=== PATIENT | female | born 1975 | race Caucasian/White ===

== ENCOUNTER 2016-06-14 08:51 | Emergency (ER) | payer SELFPAY ==
--- NOTE | 2016-06-14 08:58 | UC ---
HPI Wound/Suture Re-check - HPI Summary HPI Summary: welling healing wound left thumb - History Of Current Complaint Stated Complaint: SUTURE REMOVAL Time Seen by Provider: 06/14/16 08:57 Hx Obtained From: Patient Onset/Duration: Sudden Onset, Lasting Days - 10, Resolved Severity: Mild Pain Intensity: 0 Pain Scale Used: 0-10 Numeric - Allergies/Home Medications Allergies/Adverse Reactions: Allergies Allergy/AdvReac Type Severity Reaction Status Date / Time No Known Allergies Allergy Verified 06/03/16 11:30 Home Medications: Home Medications Ascorbic Acid TAB* [Vitamin C TAB*] 06/14/16 [History] Zinc 50 06/14/16 [History] PMH/Surg Hx/FS Hx/Imm Hx Previously Healthy: No Endocrine History Of: Reports: Diabetes - gestational, not currently - Surgical History Surgical History: Yes Surgery Procedure, Year, and Place: tonsils as child - Family History Known Family History: Positive: None Negative: Diabetes, Blood Disorder Family History: no cardiovascular issues in family lineage - Social History Occupation: Employed Full-time Lives: With Family Alcohol Use: Rare Substance Use Type: None Smoking Status (MU): Light Every Day Tobacco Smoker Amount Used/How Often: weaning off smoking Review of Systems Constitutional: Negative Skin: Other - healing wound left thumb Eyes: Negative ENT: Negative Respiratory: Negative Cardiovascular: Negative Gastrointestinal: Negative Genitourinary: Negative Motor: Negative Neurovascular: Negative Musculoskeletal: Negative Neurological: Negative Psychological: Negative All Other Systems Reviewed And Are Negative: Yes Physical Exam Triage Information Reviewed: Yes Appearance: Well-Appearing, No Pain Distress, Well-Nourished Vital Signs Reviewed: Yes Eye Exam: Normal Eyes: Positive: Conjunctiva Clear ENT Exam: Normal ENT: Positive: Normal ENT inspection, Hearing grossly normal, Pharynx normal, TMs normal. Negative: Nasal congestion, Nasal drainage, Tonsillar swelling, Tonsillar exudate, Trismus, Muffled/hoarse voice Dental Exam: Normal Neck exam: Normal Respiratory Exam: Normal Respiratory: Positive: Chest non-tender, Lungs clear, Normal breath sounds, No respiratory distress, No accessory muscle use Cardiovascular Exam: Normal Cardiovascular: Positive: RRR, No Murmur, Pulses Normal, Brisk Capillary Refill Musculoskeletal Exam: Normal Musculoskeletal: Positive: Strength Intact, ROM Intact, No Edema Neurological Exam: Normal Neurological: Positive: Alert, Muscle Tone Normal Psychological Exam: Normal Psychological: Positive: Normal Response To Family, Age Appropriate Behavior Skin Exam: Other Skin: Positive: Other - healing wound left thumb Re-Evaluation - Re-Evaluation First Eval Change: Improved - tolerated suture removal , wound well approximated, steri strips applied Course/Dx - Course Course Of Treatment: steri care, wash bid and prn re-check if needed - Differential Dx - Laceration/Wound Differential Diagnoses: Dehiscence, Healing Wound, Joint Infection, Suture Removal Provider Diagnoses: Healing wound left thumb suture removal Discharge - Discharge Plan Condition: Stable Disposition: HOME Patient Education Materials: Stitches Removal (ED), Steristrips (ED) Referrals: [facility] [Outside] - If Needed Gavi Joseph, MEDICAL TRANSLATOR [Nurse Practitioner] - If Needed
[2016-06-14] MEDS ORDERED: Benzoin Compound STICK ONE (09:04)
[2016-06-14 09:17] VITALS: BP 123/74
== END 2016-06-14 09:11 | disposition home or self-care (01) ==
LOC: UCEAST 08:51
DX: Z48.02 Encounter for removal of sutures (principal); Z48.817 Encounter for surgical aftercare following surgery on the skin and subcutaneous tissue

== ENCOUNTER 2018-03-05 14:03 | Emergency (ER) | payer BC, OTHER ==
--- OUTSIDE RECORDS SUMMARY | 2018-03-05 14:36 | XMS REPORT ---
:1975 External Reference #:[id number] Author Organization [facility] Address [address] [place] [address] Phone [phone] Care Team Providers Name Role Phone Annabel Carrizales M.D. Care Team Information Psychology Physician Unavailable Annabel Carrizales M.D. Primary Care Physician Unavailable Payers Type Date Identification Numbers Payment Provider Subscriber Health Maintenance Policy Number: Essential Plan Carolyne Gorman Organization (HMO) [id number] [employer] PayID: [id number] [address] [address] [place] [address] Problems Description No Information Family History Date Family Member(s) Problem(s) Comments Father 65 Father Thyroid Disease Mother 60 Mother Thyroid Disease First Brother 39 First Sister 22 Maternal Grandfather Diabetes Mellitus, II Social History Type Date Description Comments Marital Status Single Lives With Daughter Diet Patient is on a gluten-free diet Diet Patient is a vegetarian occas fish Occupation Construction Cigarette Use Nonsmoker ETOH Use Occasional 2-3 x week Smoking Patient is a former smoker Exercise Type/Frequency active lifestyle Allergies, Adverse Reactions, Alerts Date Description Reaction Status Severity Comments 08/02/2017 NKDA active Medications Medication Date Status Form Strength Qnty SIG Indications Ordering Provider Cyclobenzaprine 03/02 Active Tablets 5mg 90tab 1-2 by M26.601 Mounika C. HCL /2017 s mouth 3 Shon, times per ECONOMIC SPECIALIST day as needed for muscle spasm Vitamin C Active Capsules 500mg 1 by Unknown /0000 mouth twice a day Multivitamin Active Tablets 1 by Unknown Adult /0000 mouth every day Vitamin B Active Tablets 1 by Unknown Complex /0000 mouth every day Zithromax 02/05 Hx Capsules 250mg 6caps 2 tabs po 466.0 Sheila /2006 x1, then [place], - 1 tab po FOAM RUBBER CURER 08/02 qd x more days Tussi-12 02/05 Hx Suspension 30mg;4 120ml 1 tsp bid 466.0 mg/5 ML [place], - FOAM RUBBER CURER 08/02 Albuterol Mdi 02/05 Hx 1unit 2 Puffs 466.0 s Q4H prn [place], - Cough Or FOAM RUBBER CURER 08/02 Wheeze Triphasil 10/25 Hx 1Pack 28 [facility] 08/02 Of [place] 1 PO qd Naprosyn 10/25 Hx Tablets 500mg 20tab 1 bid Nacho Amador s With Food Shane - Leonel 08/02 Ortho-Tricyclen 06/10 Hx 1 Pill PO Korin qd Abhi, - FOAM RUBBER CURER-C 10/25 Cipro 06/10 Hx Tabs 500mg 20tab 1 po bid Korin s for 10 Abhi, - days FOAM RUBBER CURER-C 10/25 Vicodin 06/10 Hx 5/500mg 30uni 1 po qid Korin ts prn pain Abhi, - FOAM RUBBER CURER-C 10/25 Physical Therapy 10/24 Hx treatment Iwly T. and Mary, - sesar Castaneda 06/10 n shoulder pain Orthoevra 09/19 Hx 1 patch [facility] 06/10 Of Flexeril 09/19 Hx 10mg 30uni 1 tid prn ts muscle Motnana, - spasm FOAM RUBBER CURER 06/10 Vioxx 09/19 Hx 25mg 15uni 1 po qd ts [place], - FOAM RUBBER CURER 06/10 Triphasil 09/15 Hx 0unit [facility] 05/06 Of [place] Ibuprofen Hx Capsules 200mg as needed Unknown / - 03/02 Cyclobenzaprine Hx Tablets 10mg 1/2 po qd Unknown HCL / - 03/02 Vital Signs Date Vital Result Comment 03/02/2018 BP Systolic 132 mmHg BP Diastolic 82 mmHg Heart Rate 80 /min Body Temperature 98.1 F Height 62.25 inches 5'2.25" measured 10/10/17 Weight 144.00 lb BMI (Body Mass Index) 26.1 kg/m2 10/10/2017 BP Systolic 116 mmHg BP Diastolic 60 mmHg Heart Rate 84 /min Body Temperature 99.1 F Respiratory Rate 16 /min Height 62.25 inches 5'2.25" measured 10/10/17 Weight 138.12 lb BMI (Body Mass Index) 25.1 kg/m2 08/02/2017 BP Systolic 100 mmHg BP Diastolic 60 mmHg Heart Rate 80 /min Body Temperature 98.4 F Respiratory Rate 16 /min Height 62 inches 5'2" Weight 137.00 lb BMI (Body Mass Index) 25.1 kg/m2 02/05/2006 BP Systolic 102 mmHg BP Diastolic 60 mmHg Body Temperature 98.7 F Respiratory Rate 11 /min Height 62 inches 5'2" 10/25/2005 BP Systolic 110 mmHg BP Diastolic 70 mmHg Height 62 inches 5'2" Weight 128.00 lb BMI (Body Mass Index) 23.4 kg/m2 01/25/2005 BP Systolic 100 mmHg BP Diastolic 60 mmHg Heart Rate 80 /min Body Temperature 98.3 F Height 62 inches 5'2" Weight 128.00 lb BMI (Body Mass Index) 23.4 kg/m2 06/10/2004 BP Systolic 90 mmHg BP Diastolic 60 mmHg Heart Rate 68 /min Body Temperature 97.5 F Height 62 inches 5'2" Weight 132.00 lb BMI (Body Mass Index) 24.1 kg/m2 10/25/2003 BP Systolic 120 mmHg BP Diastolic 70 mmHg Height 62 inches 5'2" Weight 130.00 lb BMI (Body Mass Index) 23.8 kg/m2 09/20/2003 BP Systolic 120 mmHg BP Diastolic 80 mmHg Body Temperature 97.1 F Height 62 inches 5'2" 05/06/2003 BP Systolic 120 mmHg BP Diastolic 80 mmHg Height 62 inches 5'2" Weight 130.00 lb BMI (Body Mass Index) 23.8 kg/m2 09/15/2001 BP Systolic 108 mmHg BP Diastolic 62 mmHg Heart Rate 64 /min Body Temperature 97.6 F Height 62 inches 5'2" Weight 122.00 lb BMI (Body Mass Index) 22.3 kg/m2 Results Test Date Test Result H/L Range Note Comprehensive Metabolic Prof 10/11/2017 Sodium 138 mEq/L 134-149 Potassium 4.2 mEq/L 3.6-5.5 Chloride 100 mEq/L 94-112 Carbon Dioxide 24 mEq/L 21-32 Glucose 99 mg/dL 70-105 BUN 12 mg/dL 6-26 Creatinine 0.7 mg/dL 0.6-1.4 BUN/Creat Ratio 17.1 CALC 8.0-36.0 Calcium 9.0 mg/dL 8.6-10.2 Total Protein 7.2 g/dL 6.4-8.3 Albumin 4.5 g/dL 3.8-5.5 Globulin 2.7 g/dL 2.0-4.8 A/G Ratio 1.7 CALC 0.6-2.3 Alk. Phosphatase 51 U/L 30-110 Alt (SGPT) 16 U/L 7-35 Ast (Sgot) 17 U/L 5-34 Total Bilirubin 0.5 mg/dL 0.2-1.3 GFR Non- >60 ml/min/1.73m^ >=60 GFR >60 ml/min/1.73m^ >=60 Lipid Profile 10/11/2017 Cholesterol 168 mg/dL 120-200 Triglycerides 71 mg/dL 30-200 HDL Cholesterol 94 mg/dL High 30-85 LDL (Calculated) 60 CALC 0-129 VLDL Cholesterol 14 mg/dL 0-50 HDL Risk Factor 1.8 CALC 0.0-4.4 Laboratory test finding 10/11/2017 TSH 2.39 mIU/L 0.50-6.00 Vitamin B-12 201 pg/mL Low 230-1050 Serum Iron 120 g/dL 60-150 CBC Electronic Fma 10/11/2017 WBC 5.2 x10^3/UL 4.0-10.0 RBC 4.12 x10^6/UL 3.93-6.00 HGB 13.1 g/dL 12.0-17.0 HCT 38 % 35-50 MCV 91.7 fL 80.0-95.0 MCH 31.8 pg 25.6-32.2 MCHC 34.7 g/dL 32.2-36.0 RDW-CV 12.2 % 11.6-14.4 PLT 284 x10^3/UL 163-400 MPV 9.4 fL 9.4-12.4 Adán# 2.85 x10^3/UL 1.56-6.13 Lymph# 1.58 x10^3/UL 1.18-3.74 [place]# 0.53 x10^3/UL 0.24-0.82 Eos # 0.1 x10^3/UL 0.0-0.5 Baso # 0.04 x10^3/UL 0.01-0.08 Adán% 55.3 % 34.0-70.0 Lymph % 30.7 % 20.0-52.0 [place]% 10.3 % 5.0-12.0 Eos% 2.7 % 0.7-7.0 Baso% 0.8 % 0.1-1.2 Laboratory test 12/30/2006 [facility] [place]/CHLTH;GEN:B STRP See Image finding Report Laboratory test 10/23/2005 [facility] D DIMER QUANT See Image finding Report Laboratory test 06/10/2004 Urine Culture FINAL 1 finding Gram Negative Susc. Panel FINAL Gni Panel FINAL Ua - Micro (Fma New) 06/10/2004 Appearance CLEAR Color LT YELLOW Glucose NEG Bilirubin NEG Ketones NEG SP Grav <=1.005 Blood 1+ LMP 05/30/04 PH 5.5 Protein NEG Urobil 0.2 Nitrite NEG Leukocytes TRACE Hyaline - /Lpf Granular - /Lpf WBC'S 5-10 RBC'S 0-1 Mucus - /Lpf Epith OCC Bacteria 1+ Amorphous - /Lpf Crystals - /Lpf Comments - 1 Source: URINE Isolate #1: Escherichia coli >100,000 col/ml ANTIBIOTIC REGINA Inter Cost Amoxicillin/CA <=2 Susceptible 4 Ampicillin <=2 Susceptible 3 Cefazolin <=4 Susceptible 4 Cefuroxime - Axetil 4 Susceptible 5 Cefuroxime - Sodium 4 Susceptible 5 Cephalothin 4 Susceptible N/A Ciprofloxacin <=0.25 Susceptible PO 2, IV 4 Gentamicin <=1 Susceptible 3 Nalidixic Acid <=2 Susceptible 0 Tetracycline <=1 Susceptible 1 Trimethoprim/Sulfa <=20 Susceptible PO 1, IV 4 Levofloxacin <=0.25 Susceptible PO 2, IV 4 Nitrofurantoin <=16 Susceptible 1, UR* --- COST CODES: The cost codes for the antibiotics reported provide the relative costs of these antibiotics per day of therapy. The higher the number, the more expensive the antibiotic is. NOTE: 'UR' indicates that the antibiotic is appropriate for the treatment of urinary tract infections only. --- If additional antimicrobial susceptibility test results for hospital inpatients are needed for antibiotics not listed on this report, please contact the Microbiology laboratory at [phone]. --- Procedures Description No Information Encounters Type Date Location Provider [facility] E/Rashmi Dx Office Visit 10/10/2017 12:00p Main Office Annabel Carrizales M.D. 60659 Z00.00 Z12.31 M79.604 R20.0 M25.561 Office Visit 08/02/2017 2:15p Main Office Meka Iverson 99744 M79.661 Office Visit 02/05/2006 11:15a Main Office JOSLYN Craig 52344 466.0 Office Visit 10/25/2005 8:20a Main Office Nacho Lynn M.D. 52331 729.5 Office Visit 01/25/2005 4:15p Main Office Meka Iverson 72492 727.43 Office Visit 06/10/2004 3:00p Main Office REENA Olvera 15339 789.07 Office Visit 09/20/2003 3:45p Main Office JOSLYN Craig 03653 729.5 Office Visit 05/06/2003 4:15p Main Office Sheila Boyle, JOSLYN 12696 719.41 Office Visit 09/15/2001 1:15p Main Office Beverly Best, Miguel-Ruchi [address] Plan of Care 03/02/2018 - Mounika Menendez, NPM26.601 Right temporomandibular joint disorder , unspecifiedNew Medication:Cyclobenzaprine HCL 5 mgComments:Call RITA if condition changes/worsens in any wayD51.9 Vitamin B12 deficiency anemia, unspecifiedNew Labs:CBC Electronic (Fma)B12 (Fma/CMC/Centrex)Comments:Will recheck today to see if you're absorbing your supplementAllComments:1. Patient has been queried about patient's goals/preferences and functional/lifestyle goals at relevant visits. If relevant, describe: Has been discussed, noted above2. Treatment goals as explainedto the patient: see above3. Are there barriers to meeting treatment goals? Yes If Yes, please describe: Barriers include possible insurance limits, disease process, and difficulty with lifestyle changes4. Self-Management goals as described to the patient: Yes, see above As always, we strongly encourage a healthy diet and making physical activity a part of your every day life. If you have questions about how or where to start, please contact the office.
--- NOTE | 2018-03-05 14:39 | ED ---
HPI Chest Pain - HPI Summary HPI Summary: This patient is a 42 year old F presenting to [facility] accompanied by family with a chief complaint of sharp mid-sternal CP that began at 1330 today that resolved LEAN ENGINEER. The patient rates the pain 4/10 in severity. Symptoms aggravated by nothing. Symptoms alleviated by nothing. Patient reports dizziness. Patient denies nausea, vomiting, and SOB. - History of Current Complaint Chief Complaint: EDChestPainROMI Time Seen by Provider: 03/05/18 14:31 Hx Obtained From: Patient Hx Last Menstrual Period: 02/26/2018 Onset/Duration: Started Hours Ago, Atraumatic, Resolved Timing: Constant Initial Severity: Moderate Current Severity: Moderate Pain Intensity: 4 Pain Scale Used: 0-10 Numeric Chest Pain Location: Mid Sternal Chest Pain Radiates: No Aggravating Factor(s): Nothing Alleviating Factor(s): Nothing Associated Signs and Symptoms: Positive: Dizziness. Negative: Shortness of Breath, Nausea, Vomiting - Allergy/Home Medications Allergies/Adverse Reactions: Allergies Allergy/AdvReac Type Severity Reaction Status Date / Time gluten Allergy Rash Verified 03/05/18 14:17 kiwi Allergy See Comment Verified 03/05/18 14:17 oneil Allergy See Comment Verified 03/05/18 14:17 pineapple Allergy See Comment Verified 03/05/18 14:17 PMH/Surg Hx/FS Hx/Imm Hx Previously Healthy: No Endocrine/Hematology History: Reports: Hx Diabetes - gestational, not currently Denies: Hx Thyroid Disease Cardiovascular History: Denies: Hx Hypertension Respiratory History: Denies: Hx Asthma, Hx Chronic Obstructive Pulmonary Disease (COPD) GI History: Denies: Hx Ulcer Opthamlomology History: Denies: Hx Legally Blind EENT History: Denies: Hx Deafness - Surgical History Surgery Procedure, Year, and Place: tonsils as child Infectious Disease History: No Infectious Disease History: Reports: 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 Denies: Hx Hepatitis, Hx Human Immunodeficiency Virus (HIV), History Other Infectious Disease, Traveled Outside the [place] in Last 30 Days - Family History Known Family History: Negative: Diabetes, Blood Disorder Family History: no cardiovascular issues in family lineage - Social History Occupation: Employed Full-time Lives: Alone Alcohol Use: Rare Hx Substance Use: No Substance Use Type: Reports: None Hx Tobacco Use: Yes Smoking Status (MU): Light Every Day Tobacco Smoker Type: Cigarettes Amount Used/How Often: weaning off smoking Review of Systems Positive: Chest Pain Negative: Shortness Of Breath Negative: Vomiting, Nausea Neurological: Other - Positive dizziness All Other Systems Reviewed And Are Negative: Yes Physical Exam - Summary Physical Exam Summary: VITAL SIGNS: Reviewed. GENERAL: Patient is a well-developed and nourished female who is lying comfortable in the stretcher. Patient is not in any acute respiratory distress. HEAD AND FACE: No signs of trauma. No ecchymosis, hematomas or skull depressions. No sinus tenderness. EYES: PERRLA, EOMI x 2, No injected conjunctiva, no nystagmus. EARS: Hearing grossly intact. Ear canals and tympanic membranes are within normal limits. MOUTH: Oropharynx within normal limits. NECK: Supple, trachea is midline, no adenopathy, no JVD, no carotid bruit, no c- spine tenderness, neck with full ROM. CHEST: Symmetric, no tenderness at palpation LUNGS: Clear to auscultation bilaterally. No wheezing or crackles. CVS: Regular rate and rhythm, S1 and S2 present, no murmurs or gallops appreciated. ABDOMEN: Soft, non-tender. No signs of distention. No rebound no guarding, and no masses palpated. Bowel sounds are normal. EXTREMITIES: FROM in all major joints, no edema, no cyanosis or clubbing. NEURO: Alert and oriented x 3. No acute neurological deficits. Speech is normal and follows commands. SKIN: Dry and warm Triage Information Reviewed: Yes Vital Signs On Initial Exam: Initial Vitals Temp Pulse Resp BP Pulse Ox 98.8 F 85 16 149/108 98 03/05/18 14:11 03/05/18 14:11 03/05/18 14:11 03/05/18 14:11 03/05/18 14:11 Vital Signs Reviewed: Yes Diagnostics - Vital Signs Vital Signs Temp Pulse Resp BP Pulse Ox 03/05/18 14:11 98.8 F 85 16 149/108 98 - Laboratory Result Diagrams: 03/05/18 14:57 03/05/18 14:57 Lab Statement: Any lab studies that have been ordered have been reviewed, and results considered in the medical decision making process. - Radiology CXR Radiology Interpretation Completed By: Radiologist - CXR reveals, per radiologist, no active cardiopulmonary disease. ED physician has reviewed this radiology report. - EKG 1501 Cardiac Rate: NL EKG Rhythm: Sinus Rhythm - [address] Segment: Normal Chest Pain Course/Dx - Course Assessment/Plan: This patient is a 42 year old F presenting to [facility] accompanied by family with a chief complaint of sharp mid-sternal CP that began at 1330 today that resolved LEAN ENGINEER. The patient rates the pain 4/10 in severity. Symptoms aggravated by nothing. Symptoms alleviated by nothing. Patient reports dizziness. Patient denies nausea, vomiting, and SOB. Blood test results without any significant abnormality except for TSH is an 11.6 and CPK is 253. EKG is a normal sinus rhythm without any ST elevation. Chest x-ray impression: No acute cardiopulmonary disease. In the ED course the patient was riding asymptomatic. She does have any other pain. Therefore the patient was discharged home with follow-up with primary care physician. Heart score is equal to 0. I discussed all the findings and test results with the patient. Patient was instructed to return to the emergency room immediately if any of the symptoms return or worsens. Plan of care was discussed with the patient and understands and agrees. All questions were answered at patient satisfaction. There were no further complaints or concerns. Lung exam before discharge: CTA B /L. Good air exchange. No wheezing or crackles heard. CVS: S1 and S2 present. No murmurs appreciated. Patient is alert and oriented x 3. Patient is hemodynamically stable. Patient will be discharged home with follow up PCP in the next 2-3 days - Chest Pain Differential Diagnosis/HQI/PQRI: Acute MD, ACS, Angina, CHF, Chest Wall, GI Disease, Pulmonary Edema, Pulmonary Embolism - Diagnoses Provider Diagnoses: Atypical chest pain, TSH elevation Discharge - Sign-Out/Discharge Documenting (check all that apply): Patient Departure - Discharge home - Discharge Plan Condition: Stable Disposition: HOME Patient Education Materials: Chest Pain (ED), Hypothyroidism (ED) Referrals: Annabel Carrizales MD [Primary Care Provider] - 2 Days Additional Instructions: RETURN TO THE EMERGENCY DEPARTMENT FOR NEW OR WORSENING SYMPTOMS - Billing Disposition and Condition Condition: STABLE Disposition: Home - Attestation Statements Document Initiated by Scribe: Yes Documenting Scribe: Mounika Ignacio Provider For Whom Scribe is Documenting (Include Credential): Aaron Webster MD Scribe Attestation: I, Mounika Ignacio, scribed for Aaron Webster MD on 03/07/18 at 1841. Scribe Documentation Reviewed: Yes Provider Attestation: The documentation as recorded by the scribe, Mounika Ignacio accurately reflects the service I personally performed and the decisions made by me, Aaron Webster MD
[2018-03-05 15:08] LABS: ABS Basophils 0.1 10^3/ul (0-0.2); ABS Eosinophils 0.2 10^3/ul (0-0.6); ABS Lymphocytes 1.4 10^3/ul (1.0-4.8); ABS Monocytes 0.6 10^3/ul (0-0.8); ABS Nucleated RBC 0 10^3/ul; Eosinophil % 2.6 % (0-6); Hematocrit 38 % (35-47); Hemoglobin 12.8 g/dl (12.0-16.0); Lymphocyte % 22.3 % (25-47); Mean Corpuscular HGB Conc 34 g/dl (31-36); Mean Corpuscular Hemoglobin 32 pg (27-31); Mean Corpuscular Volume 95 fL (80-97); Mean Platelet Volume 6.8 um3 (7.4-10.4); Nucleated Red Blood Cells % 0.1; Platelet Count 337 10^3/ul (150-450); Red Blood Count 3.96 10^6/ul (4.00-5.40); Red Cell Distribution Width 15 % (10.5-15); White Blood Count 6.3 10^3/ul (3.5-10.8)
[2018-03-05 15:24] LABS: EGFR Non-African American 77.9 (>60)
--- NOTE | 2018-03-05 15:41 | RAD ---
HISTORY: CP COMPARISONS: None VIEWS: 4: Frontal dual-energy and lateral views of the chest. FINDINGS: CARDIOMEDIASTINAL SILHOUETTE: The cardiomediastinal silhouette is normal. ANDREA: The andrea are normal. PLEURA: The costophrenic angles are sharp. No pleural abnormalities are noted. LUNG PARENCHYMA: The lungs are clear. ABDOMEN: The upper abdomen is clear. There is no subphrenic gas. BONES AND SOFT TISSUES: No bone or soft tissue abnormalities are noted. OTHER: None. IMPRESSION: NO ACTIVE CARDIOPULMONARY DISEASE.
[2018-03-05 18:35] VITALS: BP 130/90
== END 2018-03-05 18:36 | disposition home or self-care (01) ==
LOC: ED 14:03
DX: R07.89 Other chest pain (principal); R94.6 Abnormal results of thyroid function studies; F17.210 Nicotine dependence, cigarettes, uncomplicated
CPT/HCPCS: 36415; 71046; 80053; 82550; 82553; 83605; 83735; 83880; 84443; 84484; 84702; 85025; 93005; 99283

== ENCOUNTER 2018-11-05 18:23 | Emergency (ER) | payer SELFPAY ==
--- NOTE | 2018-11-05 20:57 | ED ---
Lower Extremity - HPI Summary HPI Summary: Patient complains of swelling and redness to area of known varicose veins on medial right thigh starting today. Surgery for varicose veins pending. Patient denies trauma, fever, cough, sore throat, CP, SOB, N/V/V abdominal pain , change in urine, change in BM. No anti-coag. Denies prior history of clots. - History of Current Complaint Chief Complaint: EDExtremityLower Stated Complaint: LOWER RT EXTREMITY PAIN PER PT Time Seen by Provider: 11/05/18 18:52 Hx Obtained From: Patient Hx Last Menstrual Period: 02/26/2018 Mechanism Of Injury: Unknown Onset of Pain: Hours Onset/Duration: Hours Severity Initially: Moderate Severity Currently: Moderate Pain Intensity: 5 Pain Scale Used: 0-10 Numeric Timing: Intermittent Location: Is Discrete @ Character Of Pain: Aching Associated Signs And Symptoms: Positive: Swelling, Redness Aggravating Factor(s): Nothing Alleviating Factor(s): Nothing Able to Bear Weight: Yes - Allergies/Home Medications Allergies/Adverse Reactions: Allergies Allergy/AdvReac Type Severity Reaction Status Date / Time gluten Allergy Rash Verified 11/05/18 18:29 kiwi Allergy See Comment Verified 11/05/18 18:29 oneil Allergy See Comment Verified 11/05/18 18:29 pineapple Allergy See Comment Verified 11/05/18 18:29 PMH/Surg Hx/FS Hx/Imm Hx Endocrine/Hematology History: Reports: Hx Diabetes - gestational, not currently Denies: Hx Thyroid Disease Cardiovascular History: Denies: Hx Hypertension Respiratory History: Denies: Hx Asthma, Hx Chronic Obstructive Pulmonary Disease (COPD) GI History: Denies: Hx Ulcer History: Denies: Hx Dialysis Sensory History: Denies: Hx Legally Blind, Hx Deafness Opthamlomology History: Denies: Hx Legally Blind EENT History: Denies: Hx Deafness Neurological History: Denies: Hx Developmental Delay Psychiatric History: Denies: Hx Autism - Surgical History Surgery Procedure, Year, and Place: tonsils as child Infectious Disease History: No Infectious Disease History: Reports: 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 Denies: Hx Hepatitis, Hx Human Immunodeficiency Virus (HIV), History Other Infectious Disease, Traveled Outside the [place] in Last 30 Days - Family History Known Family History: Negative: Diabetes, Blood Disorder Family History: no cardiovascular issues in family lineage - Social History Alcohol Use: Rare Hx Substance Use: No Substance Use Type: Reports: Marijuana Substance Use Comment - Amount & Last Used: rare Hx Tobacco Use: Yes Smoking Status (MU): Light Every Day Tobacco Smoker Type: Cigarettes Amount Used/How Often: weaning off smoking Review of Systems Constitutional: Negative Eyes: Negative ENT: Negative Cardiovascular: Negative Respiratory: Negative Gastrointestinal: Negative Genitourinary: Negative Musculoskeletal: Negative Skin: Other Neurological: Negative Psychological: Normal All Other Systems Reviewed And Are Negative: Yes Physical Exam - Summary Physical Exam Summary: Varicose veins on medial right thigh. Very mild erythema locally. Full range of motion of right knee, right hip and right ankle and foot without pain. Mild tenderness to palpation over varicose veins. Very mild warmth over area varicose veins. Calf soft nontender. PMS intact distally. Triage Information Reviewed: Yes Vital Signs On Initial Exam: Initial Vitals Temp Pulse Resp BP Pulse Ox 97.9 F 88 16 133/87 98 11/05/18 18:24 11/05/18 18:24 11/05/18 18:24 11/05/18 18:24 11/05/18 18:24 Vital Signs Reviewed: Yes Appearance: Positive: Well-Appearing Skin: Positive: Warm Head/Face: Positive: Normal Head/Face Inspection Eyes: Positive: Normal Neck: Positive: Supple Respiratory/Lung Sounds: Positive: Clear to Auscultation Cardiovascular: Positive: Normal Abdomen Description: Positive: Nontender Musculoskeletal: Positive: Normal Neurological: Positive: Normal Psychiatric: Positive: Normal AVPU Assessment: Alert - Phillip Coma Scale Best Eye Response: 4 - Spontaneous Best Motor Response: 6 - Obeys Commands Best Verbal Response: 5 - Oriented Coma Scale Total: 15 Diagnostics - Vital Signs Vital Signs Temp Pulse Resp BP Pulse Ox 11/05/18 18:24 97.9 F 88 16 133/87 98 - Laboratory Lab Statement: Any lab studies that have been ordered have been reviewed, and results considered in the medical decision making process. Lower Extremity Course/Dx - Course Course Of Treatment: Patient complains of swelling and redness to area of known varicose veins on medial right thigh starting today. Surgery for varicose veins pending. Patient denies trauma, fever, cough, sore throat, CP, SOB, N/V/ V abdominal pain, change in urine, change in BM. No anti-coag. Denies prior history of clots. Physical exam:Varicose veins on medial right thigh. Very mild erythema locally. Full range of motion of right knee, right hip and right ankle and foot without pain. Mild tenderness to palpation over varicose veins. Very mild warmth over area varicose veins. Calf soft nontender. PMS intact distally. Vital signs within normal limits. Ultrasound negative for DVT. Advised patient to continue taking NSAIDs. Follow-up with surgeon for further evaluation. Patient understands and approves of plan. - Diagnoses Provider Diagnoses: Acute superficial venous thrombosis of left lower extremity Discharge - Sign-Out/Discharge Documenting (check all that apply): Patient Departure Patient Received Moderate/Deep Sedation with Procedure: No - Discharge Plan Condition: Stable Disposition: HOME Patient Education Materials: Superficial Thrombophlebitis (ED) Referrals: Annabel Carrizales MD [Primary Care Provider] - Additional Instructions: Continue to take ibuprofen. Follow up with your vascular surgeon. Return to the ED for any new or worsening symptoms. - Billing Disposition and Condition Condition: STABLE Disposition: Home
[2018-11-05 21:21] VITALS: BP 138/83
== END 2018-11-05 21:21 | disposition home or self-care (01) ==
LOC: ED 18:23
DX: I82.812 Embolism and thrombosis of superficial veins of left lower extremity (principal); R60.0 Localized edema; I83.91 Asymptomatic varicose veins of right lower extremity; F17.210 Nicotine dependence, cigarettes, uncomplicated; Z86.14 Personal history of Methicillin resistant Staphylococcus aureus infection
CPT/HCPCS: 99282

== ENCOUNTER 2018-12-16 16:54 | Emergency (ER) | payer OTHER ==
[2018-12-16 18:49] LABS: ABS Eosinophils 0.5 10^3/ul (0-0.6); ABS Lymphocytes 1.9 10^3/ul (1.0-4.8); ABS Monocytes 0.6 10^3/ul (0-0.8); ABS Neutrophils 4.1 10^3/ul (1.5-7.7); Eosinophil % 6.4 %; Hematocrit 38 % (35-47); Hemoglobin 12.7 g/dL (12.0-16.0); Lymphocyte % 27.4 %; Mean Corpuscular HGB Conc 34 g/dL (31-36); Mean Corpuscular Hemoglobin 32 pg (27-31); Mean Corpuscular Volume 94 fL (80-97); Mean Platelet Volume 7.4 fL (7.4-10.4); Platelet Count 300 10^3/uL (150-450); Red Cell Distribution Width 14 % (10-15); White Blood Count 7.1 10^3/uL (3.5-10.8)
--- NOTE | 2018-12-16 18:57 | ED ---
Shortness of Breath - HPI Summary HPI Summary: Patient is a 43 y [facility] F [facility] mother with a chief complaint of shortness of breath rated at a severity of 3/10 after taking a nap this afternoon. Symptoms are alleviated by nothing and aggravated by nothing. Patient reports chest pressure. Patient reports PMHx superficial veins and varicose veins for which she is planning to have surgery. Patient reports she has been wearing compression stockings for the past 3 months. Patient states that she developed blood clots in her legs 1 month ago and has been seen in the ED for the blood clots in her legs. Patient takes low dose of aspirin. Patient denies PMHx blood clots in her lungs. Patients last menstrual period was 2 weeks ago. - History of Current Complaint Chief Complaint: EDShortnessOfBreath Time Seen by Provider: 12/16/18 18:27 Hx Obtained From: Patient Onset/Duration: Lasting Hours - since this afternoon, Still Present Current Severity: Mild - 3/10 Aggravating Factors: Nothing Alleviating Factors: Nothing - Allergy/Home Medications Allergies/Adverse Reactions: Allergies Allergy/AdvReac Type Severity Reaction Status Date / Time gluten Allergy Rash Verified 12/16/18 17:06 kiwi Allergy See Comment Verified 12/16/18 17:06 oneil Allergy See Comment Verified 12/16/18 17:06 pineapple Allergy See Comment Verified 12/16/18 17:06 PMH/Surg Hx/FS Hx/Imm Hx Previously Healthy: No - PMHx superficial veins, varicose veins, blood clots in legs Endocrine/Hematology History: Reports: Hx Diabetes - gestational, not currently Denies: Hx Thyroid Disease Cardiovascular History: Denies: Hx Hypertension Respiratory History: Denies: Hx Asthma, Hx Chronic Obstructive Pulmonary Disease (COPD) GI History: Denies: Hx Ulcer History: Denies: Hx Dialysis Sensory History: Denies: Hx Legally Blind, Hx Deafness Opthamlomology History: Denies: Hx Legally Blind Neurological History: Denies: Hx Developmental Delay Psychiatric History: Denies: Hx Autism - Surgical History Surgery Procedure, Year, and Place: tonsils as child Infectious Disease History: No Infectious Disease History: Reports: 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 Denies: Hx Hepatitis, Hx Human Immunodeficiency Virus (HIV), History Other Infectious Disease, Traveled Outside the [place] in Last 30 Days - Family History Known Family History: Negative: Cardiac Disease, Diabetes, Blood Disorder Family History: no cardiovascular issues in family lineage - Social History Alcohol Use: Rare Hx Substance Use: Yes Substance Use Type: Reports: Marijuana Substance Use Comment - Amount & Last Used: rare Hx Tobacco Use: Yes Smoking Status (MU): Light Every Day Tobacco Smoker Type: Cigarettes Amount Used/How Often: weaning off smoking Review of Systems Positive: Other - chest pressure Positive: Shortness Of Breath All Other Systems Reviewed And Are Negative: Yes Physical Exam - Summary Physical Exam Summary: VITAL SIGNS: Reviewed. GENERAL: Patient is a well-developed and nourished FEMALE who is lying comfortable in the stretcher. Patient is not in any acute respiratory distress. HEAD AND FACE: No signs of trauma. No ecchymosis, hematomas or skull depressions. No sinus tenderness. EYES: PERRLA, EOMI x 2, No injected conjunctiva, no nystagmus. EARS: Hearing grossly intact. Ear canals and tympanic membranes are within normal limits. MOUTH: Oropharynx within normal limits. NECK: Supple, trachea is midline, no adenopathy, no JVD, no carotid bruit, no c- spine tenderness, neck with full ROM. CHEST: Symmetric, no tenderness at palpation. LUNGS: Clear to auscultation bilaterally. No wheezing or crackles. CVS: Regular rate and rhythm, S1 and S2 present, no murmurs or gallops appreciated. ABDOMEN: Soft, non-tender. No signs of distention. No rebound, no guarding, and no masses palpated. Bowel sounds are normal. EXTREMITIES: FROM in all major joints, no edema, no cyanosis or clubbing. NEURO: Alert and oriented x 3. No acute neurological deficits. Speech is normal and follows commands. SKIN: Dry and warm Triage Information Reviewed: Yes Vital Signs On Initial Exam: Initial Vitals Temp Pulse Resp BP Pulse Ox 100.0 F 86 14 147/99 97 12/16/18 17:02 12/16/18 17:02 12/16/18 17:02 12/16/18 17:02 12/16/18 17:02 Vital Signs Reviewed: Yes Diagnostics - Vital Signs Vital Signs Temp Pulse Resp BP Pulse Ox 12/16/18 18:31 79 100 12/16/18 18:29 124/103 12/16/18 17:02 100.0 F 86 14 147/99 97 - Laboratory Lab Results: Lab Results 12/16/18 Range/Units 18:41 WBC 7.1 (3.5-10.8) 10^3/uL RBC 4.00 (3.70-4.87) 10^6 /uL Hgb 12.7 (12.0-16.0) g/dL Hct 38 (35-47) % MCV 94 (80-97) fL MCH 32 H (27-31) pg MCHC 34 (31-36) g/dL RDW 14 (10-15) % Plt Count 300 (150-450) 10^3/uL MPV 7.4 (7.4-10.4) fL Neut % (Auto) 57.4 % Lymph % (Auto) 27.4 % [place] % (Auto) 8.7 % Eos % (Auto) 6.4 % Baso % (Auto) 0.1 % Absolute Neuts (auto) 4.1 (1.5-7.7) 10^3/ul Absolute Lymphs (auto) 1.9 (1.0-4.8) 10^3/ul Absolute Monos (auto) 0.6 (0-0.8) 10^3/ul Absolute Eos (auto) 0.5 (0-0.6) 10^3/ul Absolute Basos (auto) 0.0 (0-0.2) 10^3/ul Absolute Nucleated RBC 0.0 10^3/ul Nucleated RBC % 0.0 Result Diagrams: 12/16/18 18:41 12/16/18 18:41 Lab Statement: Any lab studies that have been ordered have been reviewed, and results considered in the medical decision making process. - Radiology Chest X-Ray Radiology Interpretation Completed By: ED Physician Summary of Radiographic Findings: No acute process. Pending offical report. - EKG 1837 Cardiac Rate: NL - 66 BPM EKG Rhythm: Sinus Rhythm EKG Comparison: No Significant Change - 03/05/18 Summary of EKG Findings: Sinus rhythm at [address] elevations. Normal axis. Similar to previous EKG on 03/05/18. Course/Dx - Course Assessment/Plan: Patient is a 43 y [facility] F [facility] by her mother with a chief complaint of shortness of breath rated at a severity of 3/10 after taking a nap this afternoon. Symptoms are alleviated by nothing and aggravated by nothing. Patient reports chest pressure. Patient reports PMHx superficial veins and varicose veins for which she is planning to have surgery. Patient reports she has been wearing compression stockings for the past 3 months. Patient states that she developed blood clots in her legs 1 month ago and has been seen in the ED for the blood clot in her legs. Patient takes low dose of aspirin. Patient denies PMHx blood clots in her lungs. Patients last menstrual period was 2 weeks ago. Blood test results without any significant abnormality. D-dimer is less than 200. Therefore I have no suspicion for DVT. Chest x-ray impression no acute pathology. EKG shows a normal sinus rhythm without any ST elevations. Therefore, at this point, the patient was discharged home with follow-up with PCP. I discussed all the findings and test results with the patient. Patient was instructed to return to the emergency room immediately if any of the symptoms return worsens. Plan of care was discussed with the patient and she understands and agrees. All questions were answered at patient satisfaction. There were no further complaints or concerns. Lung exam before discharge: CTA B/L. Good air exchange. No wheezing or crackles heard. CVS: S1 and S2 present. No murmurs appreciated. - Diagnoses Provider Diagnoses: Dyspnea Discharge - Sign-Out/Discharge Documenting (check all that apply): Patient Departure - discharge Patient Received Moderate/Deep Sedation with Procedure: No - Discharge Plan Condition: Stable Disposition: HOME Patient Education Materials: Dyspnea (ED) Referrals: Annabel Carrizales MD [Primary Care Provider] - 3 Days Additional Instructions: Follow up with primary care provider in 3 days. Return to emergency department for any new or worsening symptoms. - Billing Disposition and Condition Condition: STABLE Disposition: Home - Attestation Statements Document Initiated by Scribe: Yes Documenting Scribe: Laura Borges Provider For Whom Amara is Documenting (Include Credential): Aaron Webster MD Scribe Attestation: Sara Dallas Alison Kim, scribed for Aaron Webster MD on 12/18/18 at 2015. Scribe Documentation Reviewed: Yes Provider Attestation: The documentation as recorded by the scribeliceo, Laura Borges accurately reflects the service I personally performed and the decisions made by me, Aaron Webster MD Status of Scribe Document: Viewed
[2018-12-16 19:07] LABS: ALT 12 U/L (7-52); AST 16 U/L (13-39); Albumin 4.4 g/dL (3.2-5.2); Albumin/Globulin Ratio 1.5 (1-3); Alkaline Phosphatase 46 U/L (34-104); Anion Gap 8 mmol/L (2-11); BUN/Creatinine Ratio 17.5 (8-20); Blood Urea Nitrogen 14 mg/dL (6-24); C Reactive Protein < 1.00 mg/L (<8.01); CO2 Carbon Dioxide 23 mmol/L (22-32); Chloride 105 mmol/L (101-111); Creatine Kinase 69 U/L (10-223); EGFR African American 95.2 (>60); EGFR Non-African American 78.7 (>60); Globulin 2.9 g/dL (2-4); Glucose 96 mg/dL (70-100); Potassium 3.8 mmol/L (3.5-5.0); Sodium 136 mmol/L (135-145); Total Protein 7.3 g/dL (6.4-8.9)
[2018-12-16 20:51] VITALS: BP 121/77
== END 2018-12-16 20:50 | disposition home or self-care (01) ==
LOC: ED 16:54
DX: R06.00 Dyspnea, unspecified (principal); F17.210 Nicotine dependence, cigarettes, uncomplicated
CPT/HCPCS: 36415; 71046; 80053; 82550; 83605; 84484; 85025; 85379; 86140; 93005; 99282